=== PATIENT | female | born 1950 | race Caucasian/White ===

== ENCOUNTER → 2016-08-27 | Outpatient (CLI) | payer BC ==
[~2016-08-27] MED LIST: LISI-461 PO; LSX20 PO; TPRSR/50 PO
--- NOTE | 2016-08-27 12:44 | MAMMOGRAPHY REPORT ---
BILATERAL DIGITAL SCREENING MAMMOGRAM WITH CAD: 08/27/2016 TECHNIQUE: Current study was also evaluated with a Computer Aided Detection (CAD) system. Bilatera l CC and MLO views were obtained. COMPARISON: Comparison is made to exam dated: 08/22/2015 mammogram - [facility]. BREAST COMPOSITION: There are scattered areas of fibroglandular density in both breasts. FINDINGS: No suspicious masses, calcifications, or areas of architectural distortion are noted in e ither breast. There has been no significant interval change compared to prior exams. IMPRESSION: ACR BI-RADS CATEGORY 1: NEGATIVE There is no mammographic evidence of malignancy. A 1 year screening mammogram is recommended. The p atient will receive written notification of the results. Approximately 10% of breast cancers are not detected with mammography. A negative mammographic repor t should not delay biopsy if a clinically suggestive mass is present. Farzaneh Corrigan M.D. ah/:08/27/2016 11:02:57 Travel Sales Consultant: Lynne BOYD(Silvia)([place]), [facility] letter sent: Normal 1/2 BI-RADS Code: ACR BI-RADS Category 1: Negative
== END | disposition home or self-care (01) ==
LOC: C.MAMM 09:19
PROVIDERS: ATTEND Nurse Practitioner
DX: Z12.31 Encounter for screening mammogram for malignant neoplasm of breast (principal)

== ENCOUNTER 2017-03-02 06:50 | Emergency (ER) | payer BC, OTHER ==
[~2017-03-02] VITALS: Ht 160 cm; Wt 80.5 kg
[~2017-03-02 06:50] MED LIST changes: -LISI-461 PO
[2017-03-02 07:01] VITALS: TEMP 36.7; Ht 160 cm; Wt 80.5 kg
[2017-03-02] MEDS ORDERED: LISI-461 PO (07:03)
[2017-03-02 07:08] VITALS: O2SAT 98
[2017-03-02 07:16] LABS: HEMATOCRIT 41.2 % (37-47); MEAN CELL VOLUME 88.4 fL (80-100); MEAN CORPUSCULAR HEMOGLOBIN 28.5 pg (25-34); MEAN CORPUSCULAR HGB CONC 32.3 g/dl (32-36); MEAN PLATELET VOLUME 10.1 fL (7.4-10.4); PLATELET COUNT 204 K/uL (130-400); RED BLOOD COUNT 4.66 M/uL (4.2-5.4); WHITE BLOOD COUNT 6.79 K/uL (4.8-10.8)
[2017-03-02 07:29] LABS: ALT/SGPT 20 U/L (12-78); AST/SGOT 18 U/L (15-37); BLOOD UREA NITROGEN 29 mg/dl (7-18); BUN/CREATININE RATIO 16.1 (10-20); CALCIUM 9.2 mg/dl (8.5-10.1); CARBON DIOXIDE 28 mmol/L (21-32); CHLORIDE 106 mmol/L (98-107); GLUCOSE 125 mg/dl (70-99); POTASSIUM 3.9 mmol/L (3.5-5.1); SODIUM 141 mmol/L (136-145)
[2017-03-02 07:40] LABS: ALKALINE PHOSPHATASE 72 U/L (45-117)
--- NOTE | 2017-03-02 07:51 | DIAGNOSTIC IMAGING REPORT ---
CHEST 2 VIEWS ROUTINE CLINICAL HISTORY: Dizzy. COMPARISON STUDY: Chest radiograph and chest CT May 28, 2015. FINDINGS: Lung volumes are normal. There is no pneumothorax or pleural effusion. There is no evidence of pulmonary edema. Cardiomediastinal silhouette is stable. Right suprahilar nodular density was shown to be due to pulmonary vessels on CT of May 28, 2015. This is unchanged. The appearance of the chest is unchanged. IMPRESSION: No acute cardiopulmonary findings. Electronically signed by: Ramos Bonds M.D. 03/02/2017 7:50 AM Dictated Date/Time: 03/02/2017 7:48 AM
[2017-03-02 08:26] LABS: MANUAL MICROSCOPIC REQUIRED? YES; URINE APPEARANCE CLEAR (CLEAR); URINE BILIRUBIN NEG (NEG); URINE COLOR YELLOW; URINE NITRITE NEG (NEG); URINE PH 5.5 (4.5-7.5); UROBILINOGEN NEG (NEG)
[2017-03-02 08:28] LABS: REVIEW REQ? NO
[2017-03-02 08:37] LABS: URINE BACTERIA NEG (NEG)
[2017-03-02 08:38] LABS: ZZUR CULT IF INDIC CLEAN CATCH NO
--- NOTE | 2017-03-02 10:12 | EMERGENCY ROOM VISIT NOTE ---
History Report prepared by Sarah: Slime White Under the Supervision of: Dr. Anthony Gonzáles M.D. First contact with patient: 07:00 Stated Complaint: DIZZINESS/LIGHTHEADED History of Present Illness The patient is a 66 year old female who presents to the Emergency Room with complaints of persistent lightheadedness starting this morning. She presents to the ED by EMS. She states that when she is walking around, she feels "drunk" and like she might fall over if she does not hold on to something. She denies any room spinning. She suspected that her blood pressure or blood sugar might be causing her lightheadedness. Her blood sugar is normal and her blood pressure is elevated. She has a history of hypertension and is on medications. She denies having any pain anywhere. She denies any SOB, fever, chills, dysuria , or leg pain. She denies any changes in urination or bowel movement. She denies any medication changes or diet changes. Source of History: patient Onset: this morning Position: other (global) Quality: other (lightheadedness) Timing: other (persistent) Associated Symptoms: No fevers, No chills, No SOB, No urinary symptoms Note: Pt denies having pain. Review of Systems All systems have been listed, reviewed, and are negative other than those previously mentioned. Please see Additional Medical History Sheet. Past Medical & Surgical Medical Problems: (1) Diabetes (2) Hyperlipidemia (3) Hypertension (4) Kidney disease Surgical Problems: (1) S/P appendectomy Family History Heart disease Hypertension Social History Smoking Status: Never Smoker Drug Use: none Marital Status: Housing Status: lives with significant other Occupation Status: employed Current/Historical Medications Scheduled Furosemide (Furosemide), 20 MG PO DAILY Lisinopril (Zestril), 10 MG PO DAILY Metoprolol Succinate (Metoprolol Succinate ER), 50 MG PO DAILY Allergies Coded Allergies: No Known Allergies (Unverified , NONE, 01/08/16) Physical Exam Vital Signs Date Time Temp Pulse Resp B/P (MAP) Pulse Ox O2 Delivery O2 Flow Rate FiO2 03/02/17 11:00 50 14 159/83 96 03/02/17 10:01 52 14 127/72 98 Room Air 03/02/17 09:00 46 20 116/73 98 Room Air 03/02/17 08:15 51 15 164/87 98 Room Air 03/02/17 07:44 56 14 142/85 98 Room Air 03/02/17 07:19 57 142/76 65 155/92 65 156/76 03/02/17 07:08 98 Room Air 03/02/17 07:02 54 03/02/17 07:01 36.7 60 17 183/84 98 Room Air Physical Exam GENERAL: Patient awake, alert, oriented x 3. Patient follows commands. Patient does not appear toxic. Patient is adequately hydrated and well- nourished. SKIN: No erythema, pallor, cyanosis or rash HEENT: Normal head, pupils equal, reactive to light and accommodation. Oral cavity and posterior pharynx appear normal. Neck: Without adenopathy, no neck vein distention. LUNGS: Clear to auscultation. No wheezes, no rales, no rhonchi. HEART: No murmurs. No gallops. No rubs ABDOMEN: Obese. No masses, no rebound, no hepatomegaly or splenomegaly. EXTREMITIES: No signs of trauma. No pedal or pretibial edema. No calf or thigh tenderness. NEUROLOGIC: Cranial nerves II-XII within normal limits. No gross motor sensory function deficits. Medical Decision & Procedures ER Provider Diagnostic Interpretation: X ray results are stated below per my interpretation and the radiologist's interpretation. CHEST 2 VIEWS ROUTINE CLINICAL HISTORY: Dizzy. COMPARISON STUDY: Chest radiograph and chest CT May 28, 2015. FINDINGS: Lung volumes are normal. There is no pneumothorax or pleural effusion. There is no evidence of pulmonary edema. Cardiomediastinal silhouette is stable. Right suprahilar nodular density was shown to be due to pulmonary vessels on CT of May 28, 2015. This is unchanged. The appearance of the chest is unchanged. IMPRESSION: No acute cardiopulmonary findings. Electronically signed by: Ramos Bonds M.D. 03/02/2017 7:50 AM Dictated Date/Time: 03/02/2017 7:48 AM Laboratory Results 03/02/17 06:40 03/02/17 06:40 Test 03/02/17 06:40 03/02/17 08:15 Red Blood Count 4.66 M/uL (4.2-5.4) Mean Corpuscular Volume 88.4 fL (80-100) Mean Corpuscular Hemoglobin 28.5 pg (25-34) Mean Corpuscular Hemoglobin Concent 32.3 g/dl (32-36) RDW Standard Deviation 44.7 fL (36.4-46.3) RDW Coefficient of Variation 13.8 % (11.5-14.5) Mean Platelet Volume 10.1 fL (7.4-10.4) Anion Gap 7.0 mmol/L (3-11) Est Creatinine Clear Calc Drug Dose 31.3 ml/min Estimated GFR () 33.6 Estimated GFR (Non- 29.0 BUN/Creatinine Ratio 16.1 (10-20) Calcium Level 9.2 mg/dl (8.5-10.1) Total Bilirubin 0.5 mg/dl (0.2-1) Aspartate Amino Transf (AST/SGOT) 18 U/L (15-37) Alanine Aminotransferase (ALT/SGPT) 20 U/L (12-78) Alkaline Phosphatase 72 U/L (45-117) Troponin I < 0.015 ng/ml (0-0.045) Total Protein 8.1 gm/dl (6.4-8.2) Albumin 4.0 gm/dl (3.4-5.0) Globulin 4.1 gm/dl (2.5-4.0) Albumin/Globulin Ratio 1.0 (0.9-2) Thyroid Stimulating Hormone (TSH) 5.150 uIu/ml (0.300-4.500) Thyroxine (T4) 7.3 mcg/dl (4.5-10.9) Free Triiodothyronine 3.06 pg/ml (2.30-4.20) Total Triiodothyronine 1.32 ng/ml (0.60-1.81) Urine Color YELLOW Urine Appearance CLEAR (CLEAR) Urine pH 5.5 (4.5-7.5) Urine Specific [place] 1.020 (1.000-1.030) Urine Protein TRACE (NEG) Urine Glucose (UA) NEG (NEG) Urine Ketones NEG (NEG) Urine Occult Blood NEG (NEG) Urine Nitrite NEG (NEG) Urine Bilirubin NEG (NEG) Urine Urobilinogen NEG (NEG) Urine Leukocyte Esterase TRACE (NEG) Urine RBC 5-10 /hpf (0-4) Urine WBC 1-5 /hpf (0-5) Urine Epithelial Cells 0-5 /lpf (0-5) Urine Bacteria NEG (NEG) Laboratory results as stated above per my review. ECG Indication: other (dizziness) Rate (beats per minute): 55 Rhythm: sinus bradycardia (with sinus arrhythmia) Findings: PVC (occasional), ST depression (lead 1 and aVL, slight depression in V4, V5, V6) Comparison ECG Date: 30-May-2015 Change: no significant change ED Course 0702: Past medical records reviewed. The patient was evaluated in room B2. A complete history and physical examination was performed. 1007: I reevaluated the patient. She is resting comfortably. I updated her on the results. 1030: Upon reevaluation, the patient was resting comfortably. I discussed today' s findings with her. She verbalized agreement of the treatment plan. She was discharged home. Medical Decision Nurses notes reviewed. Medical history sheet reviewed. Differential diagnosis includes but is not limited to: CVA, TIA, metabolic disorder, dehydration, viral /bacterial infection. Medication Reconciliation: I attest that I have personally reviewed the patient' s current medication list. Blood pressure Screening: Patient was found to have normal blood pressure on screening and does not require follow up. The patient is here complaining of dizziness. She has no chest pain or shortness of breath. There has been no recent fever or chills. Multiple labs, EKG, imaging and urinalysis were evaluated. Please see above. The patient appears to be slightly hypothyroid. Additional thyroid tests have been ordered. In the meantime, I do not feel that she needs an immediate intervention but she will need to follow-up with her family physician to see if she needs additional thyroid medication. The patient was ambulatory prior to discharge and was still slightly unsteady on her feet but I felt that she could safely return home. Impression Primary Impression: Dizziness Additional Impression: Hypothyroidism Scribe Attestation The scribe's documentation has been prepared under my direction and personally reviewed by me in its entirety. I confirm that the note above accurately reflects all work, treatment, procedures, and medical decision making performed by me. Departure Information Dispostion Home / Self-Care Referrals Claudia Mock C.R.N.P (PCP) Patient Instructions My [facility] Additional Instructions Continue all of your current medications as prescribed. Follow-up with Dr. Joyner this week and Claudia Cuevas next week. Drink at least 2-3 quarts of liquid over the next 24 hours. Problem Qualifiers
[2017-03-02 10:29] LABS: T3 TOTAL 1.32 ng/ml (0.60-1.81); THYROXINE (T4) 7.3 mcg/dl (4.5-10.9)
[2017-03-02 11:00] VITALS: BP 159/83; PULSE 50; O2SAT 96
== END 2017-03-02 11:00 | disposition home or self-care (01) ==
LOC: EDBD 06:50 → C.EDB 06:51
DX: R42 Dizziness and giddiness (principal); E03.9 Hypothyroidism, unspecified; E11.9 Type 2 diabetes mellitus without complications; I10 Essential (primary) hypertension; E78.5 Hyperlipidemia, unspecified; N28.9 Disorder of kidney and ureter, unspecified; Z82.49 Family history of ischemic heart disease and other diseases of the circulatory system; Z79.899 Other long term (current) drug therapy

== ENCOUNTER → 2017-09-22 | Outpatient (CLI) | payer OTHER ==
[~2017-09-22] MED LIST changes: +LISI-461 PO
--- NOTE | 2017-09-22 14:28 | MAMMOGRAPHY REPORT ---
BILATERAL DIGITAL SCREENING MAMMOGRAM TOMOSYNTHESIS WITH CAD: 09/22/2017 CLINICAL HISTORY: Routine screening. Patient has no complaints. TECHNIQUE: Breast tomosynthesis in addition to standard 2D mammography was performed. Current study was also evaluated with a Computer Aided Detection (CAD) system. COMPARISON: Comparison is made to exams dated: 08/27/2016 mammogram and 08/22/2015 mammogram - [facility]. BREAST COMPOSITION: There are scattered areas of fibroglandular density in both breasts. FINDINGS: No suspicious masses, calcifications, or areas of architectural distortion are noted in ei ther breast. There has been no significant interval change compared to prior exams. IMPRESSION: ACR BI-RADS CATEGORY 1: NEGATIVE There is no mammographic evidence of malignancy. A 1 year screening mammogram is recommended. The pa tient will receive written notification of the results. Approximately 10% of breast cancers are not detected with mammography. A negative mammographic report should not delay biopsy if a clinically suggestive mass is present. Farzaneh Corrigan M.D. ah/:09/22/2017 14:13:41 Counsellors: Mariela BOYD(Silvia)(M), [facility] letter sent: Normal 1/2 BI-RADS Code: ACR BI-RADS Category 1: Negative
== END | disposition home or self-care (01) ==
LOC: C.MAMM 13:14
PROVIDERS: ATTEND Nurse Practitioner
DX: Z12.31 Encounter for screening mammogram for malignant neoplasm of breast (principal); M85.852 Other specified disorders of bone density and structure, left thigh; M85.851 Other specified disorders of bone density and structure, right thigh